=== PATIENT | male | born 1970 | race Caucasian/White ===

== ENCOUNTER 2017-12-01 21:06 | Emergency (ER) | payer MEDICARE, MEDICAID ==
[2017-12-01 22:40] LABS: INFLUENZA A AMPLIFICATION POSITIVE (NEGATIVE); INFLUENZA B AMPLIFICATION NEGATIVE (NEGATIVE)
[2017-12-01] MEDS: OSELTAMIVIR PHOSPHATE 75 MG CAP (TAMIFLU) PO (23:45)
== END 2017-12-02 00:11 | disposition home or self-care (01) ==
LOC: M ED 12-02 00:11
DX: J09.X2 Influenza due to identified novel influenza A virus with other respiratory manifestations (principal); F17.210 Nicotine dependence, cigarettes, uncomplicated
CPT/HCPCS: 87502

== ENCOUNTER 2018-08-27 13:03 | Emergency (ER) | payer MEDICARE ==
[2018-08-27] MEDS: CLINDAMYCIN 900 MG in APPROPRIATE DILUENT 1 EA IV (14:12)
[2018-08-27 14:23] LABS: BASO # 0.1 10^3/uL (0.0-0.2); BASO % 0.4 % (0.0-1.0); EOS # 0.2 10^3/uL (0.0-0.50); EOS % 1.4 % (0.0-3.0); HEMOGLOBIN 15.3 g/dl (13.5-17.5); IMMATURE GRANULOCYTE % 0.5 % (0-3.0); LYMPH # 2.9 10^3/uL (1.5-4.5); LYMPH % 17.7 % (24.0-44.0); MEAN CORPUSCULAR HEMOGLOBIN 31.4 pg (27.0-33.0); MEAN CORPUSCULAR VOLUME 92.4 fl (80.0-96.0); MONO # 1.8 10^3/uL (0.0-0.8); MONO % 10.7 % (0.0-5.0); NEUTROPHILS # 11.3 10^3/uL (1.8-7.7); NEUTROPHILS % 69.3 % (36.0-66.0); PLATELET COUNT, AUTOMATED 254 10^3/uL (150-450); RED BLOOD COUNT 4.87 10^6/uL (4.30-6.10); RED CELL DISTRIBUTION WIDTH 12.7 % (11.5-14.5); WHITE BLOOD COUNT 16.3 10^3/uL (4.0-10.0)
[2018-08-27 14:50] LABS: GOLD SPEC TUBE RECIEVED
[2018-08-27 14:56] LABS: BLOOD UREA NITROGEN 11 MG/DL (7-18); CALCIUM LEVEL 9.4 MG/DL (8.5-10.1); CARBON DIOXIDE LEVEL 31 MEQ/L (21-32); CHLORIDE LEVEL 108 MEQ/L (98-107); CREATININE FOR GFR 0.93 MG/DL (0.70-1.30); GLOMERULAR FILTRATION RATE > 60.0 (>60); GLUCOSE, FASTING 102 MG/DL (70-100); SODIUM LEVEL 141 MEQ/L (136-145)
[2018-08-27 14:57] LABS: ANION GAP 2 MEQ/L (8-16); C REACTIVE PROTEIN QUANTITATIV 1.34 MG/DL (0.00-0.30)
[2018-08-27 14:59] LABS: ERYTHROCYTE SEDIMENTATION RATE 7 mm/hr (0-15)
[2018-08-27] MEDS ORDERED: ISOVUE-370 76% 100ML VIAL (Q9967) As Ordered (15:06)
== END 2018-08-27 16:10 | disposition home or self-care (01) ==
LOC: M ED 13:03
DX: K04.7 Periapical abscess without sinus (principal); L03.211 Cellulitis of face; K21.9 Gastro-esophageal reflux disease without esophagitis; F33.9 Major depressive disorder, recurrent, unspecified; F41.9 Anxiety disorder, unspecified; F20.9 Schizophrenia, unspecified; F17.200 Nicotine dependence, unspecified, uncomplicated
CPT/HCPCS: Q9967

== ENCOUNTER 2020-08-27 13:20 | Inpatient (IN) | payer MEDICARE ==
[~2020-08-27] VITALS: Ht 175.3 cm; Wt 103.1 kg
[~2020-08-27 13:20] MED LIST: ABIL10TA PO; ATIV0.5T3 PO; CHLO25CA PO; CLEO300C2 PO; Effexor XR PO; IBUPOTC PO; LORA1TAB PO; NO HISTORICAL MEDS; OSEL75CA PO; PRAZ1CAP PO; PROZ10CA7 PO; PROZ20CA11 PO; Prozac PO; RISP4TAB33 PO; SERO1TAB PO; VENL37TA PO; ZYPR5TAB2 PO
[2020-08-27 13:56] LABS: BASO # 0.1 10^3/uL (0.0-0.2); BASO % 0.9 % (0.0-1.0); EOS # 0.3 10^3/uL (0.0-0.5); EOS % 2.4 % (0.0-3.0); HEMATOCRIT 44.7 % (42.0-52.0); HEMOGLOBIN 14.7 g/dl (13.5-17.5); LYMPH # 3.6 10^3/uL (1.5-5.0); LYMPH % 32.8 % (24.0-44.0); MEAN CORPUSCULAR HEMOGLOBIN 31.1 pg (27.0-33.0); MEAN CORPUSCULAR HGB CONC 32.9 g/dl (32.0-36.5); MEAN CORPUSCULAR VOLUME 94.5 fl (80.0-96.0); MONO # 0.8 10^3/uL (0.0-0.8); MONO % 7.6 % (0.0-5.0); NEUTROPHILS # 6.1 10^3/uL (1.5-8.5); NEUTROPHILS % 55.4 % (36.0-66.0); PLATELET COUNT, AUTOMATED 238 10^3/uL (150-450); RED BLOOD COUNT 4.73 10^6/uL (4.30-6.10)
[2020-08-27 14:35] LABS: AMPHETAMINES LEVEL URINE NEGATIVE (NEGATIVE); BARBITURATES URINE NEGATIVE (NEGATIVE); BENZODIAZEPINES URINE NEGATIVE (NEGATIVE); CANNABINOIDS URINE NEGATIVE (NEGATIVE); COCAINE METABOLITE URINE NEGATIVE (NEGATIVE); METHADONE URINE NEGATIVE (NEGATIVE); OPIATES URINE NEGATIVE (NEGATIVE); PHENCYCLIDINE URINE NEGATIVE (NEGATIVE)
[2020-08-27 14:42] LABS: ALBUMIN 4.1 GM/DL (3.2-5.2); ALT/SGPT 26 U/L (12-78); BILIRUBIN,DIRECT 0.1 MG/DL (0.0-0.2); BILIRUBIN,TOTAL 0.5 MG/DL (0.2-1.0); BLOOD UREA NITROGEN 11 MG/DL (7-18); CALCIUM LEVEL 9.4 MG/DL (8.5-10.1); CARBON DIOXIDE LEVEL 28 MEQ/L (21-32); CHLORIDE LEVEL 110 MEQ/L (98-107); CPK CREATINE PHOSPHOKINASE 118 U/L (39-308); CREATININE FOR GFR 0.79 MG/DL (0.70-1.30); GLOMERULAR FILTRATION RATE > 60.0 (>60); GLUCOSE, FASTING 120 MG/DL (70-100); MB/CK RELATIVE INDEX 1.69 (< OR =4); POTASSIUM SERUM 3.9 MEQ/L (3.5-5.1); SODIUM LEVEL 142 MEQ/L (136-145); TOTAL PROTEIN 7.3 GM/DL (6.4-8.2); TROPONIN I < 0.02 NG/ML (< 0.10)
[2020-08-27 14:54] LABS: ACETAMINOPHEN LEVEL < 2.0 UG/ML (10.0-30.0); ETHYL ALCOHOL (ETHANOL) < 0.003 % (0.000-0.010); SALICYLATE LEVEL 4.4 MG/DL (5.0-30.0)
--- NOTE | 2020-08-27 15:02 | REP ---
INDICATION: altered mental status COMPARISON: None. 09/16/2013 TECHNIQUE: Axial noncontrast images from the skull base to the vertex with coronal reformations. This CT examination was performed using the following dose reduction techniques: Automated exposure control, adjustment of mA and/or kv according to the patient's size, and use of iterative reconstruction technique. FINDINGS: The ventricles, sulci, and cisterns are normal in position and appearance. Marquis-white differentiation is maintained. No acute intracranial hemorrhage, mass/mass effect, pathology or trauma/injury. No evidence for acute infarction. No extra-axial fluid collection. Calvarium is intact. Paranasal sinuses and mastoid air cells are clear. IMPRESSION: Normal noncontrast head CT. No evidence for acute intracranial pathology or trauma/injury. <Electronically signed by Cameron Valencia > 08/27/20 [id number]
[2020-08-27] MEDS ORDERED: OLANZapine ORAL DISINTEGRATING TAB 5MG PO ONE (15:45)
[2020-08-27] MEDS ORDERED: MAALOX 30 ML SUSP *UDC PO PRN (20:00)
[2020-08-27] MEDS ORDERED: MOM 30ML SUSPENSION UDC PO PRN (20:00)
[2020-08-27] MEDS ORDERED: ACETAMINOPHEN TAB 650MG DOSE (2X325MG) PO PRN (20:00)
--- NOTE | 2020-08-27 20:35 | ECGEPIP ---
[facility] - ED Test Date: 2020-08-27 Pat Name: RACHAEL BARRERA Department: Room: - Gender: Male Recovery Manager: MARIEL : 1970 Requested By: EM Brown Order Number: [id number] Reading MD: Sangita Osman Measurements Intervals [place] Rate: 81 P: 56 NC: 134 QRS: 57 QRSD: 85 T: 35 QT: 360 QTc: 420 Interpretive Statements SINUS RHYTHM NONSPECIFIC T-WAVE ABNORMALITY NO PRIOR Electronically Signed on 08-27-2020 20:35:42 EDT by Sangita Osman
[2020-08-27 23:12] VITALS: BP 127/83
[2020-08-28] MEDS ORDERED: INFLUENZA QUADRIVALENT PF VACCINE 0.5ML SYRINGE IM ONE (09:00)
[2020-08-28] MEDS: NICOTINE 21MG/24HR 1 EA TRANSDERMAL TD SCH (09:22)
[2020-08-28 17:32] VITALS: BP 145/92
[2020-08-28] MEDS: ARIPiprazole 2 MG TAB PO SCH (21:00)
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
[2020-08-29] MEDS: NICOTINE 21MG/24HR 1 EA TRANSDERMAL TD SCH (08:57)
[2020-08-29] MEDS: OLANZapine ORAL DISINTEGRATING TAB 5MG PO PRN (11:33)
[2020-08-29 18:24] VITALS: BP 142/85
[2020-08-29] MEDS: traZODone 50 MG TAB PO PRN (20:57)
[2020-08-29] MEDS: ARIPiprazole 2 MG TAB PO SCH (20:57)
[2020-08-30 06:51] VITALS: BP 112/72
[2020-08-30] MEDS: NICOTINE 21MG/24HR 1 EA TRANSDERMAL TD SCH (09:00)
--- NOTE | 2020-08-30 09:45 | MHIPNPDOC ---
[facility] Progress Note Progress Note DATE OF SERVICE: 08/30/20 Subjective HPI: Venkata presents today for a follow-up visit. He reports that he is feeling okay but is slightly upset that he cannot go home. He has been social but unusual and psychotic. MEDICATIONS: Patient claims the Abilify makes him too tired at night and wants to try a di fferent medication. Objective Appearance: Well nourished. Appears to be stated age. Well groomed. Thought Content: No thoughts of self harm. No evidence of delusions. No evidence of suicidal ideation. No evidence of aggressive or homicidal ideation. Judgement: Poor judgement. Insight: Poor insight. Assessment F29 Unspecified psychosis not due to a substance or known physiological condition Plan Switch to 5 mg Haldol nightly, hopefully with less sedation. Vital Signs Vital Signs Date Time Temp Pulse Resp B/P (MAP) Pulse Ox O2 Delivery O2 Flow Rate FiO2 08/30/20 06:51 97.8 75 16 112/72 (85) 08/29/20 18:24 98 Room Air 08/27/20 14:35 2.0 Current Medications Current Medications Medications (Trade) Dose Ordered Sig/Mitch Route PRN Reason Start Time Stop Time Status Last Admin Dose Admin Acetaminophen (Tylenol Tab) 650 mg Q6HP PRN PO HEADACHE or DISCOMFORT 08/27/20 20:00 Al Hydrox/Mg Hydrox/Simethicone (Mylanta) 30 ml Q4HP PRN PO HEARTBURN/INDIGESTION 08/27/20 20:00 Aripiprazole (AbiLIFY) 2 mg QHS PO 08/28/20 21:00 08/29/20 20:57 Home Med (Med Rec Complete!) ASDIRECTED XX 08/27/20 20:15 08/27/20 20:05 DC Magnesium Hydroxide (Milk Of Magnesia) 30 ml DAILYPRN PRN PO CONSTIPATION 08/27/20 20:00 Nicotine (Nicoderm Cq 21mg) 1 patch DAILY TD 08/28/20 09:00 08/29/20 08:57 Olanzapine (ZyPREXA ZYDIS) 5 mg Q4HP PRN PO AGITATION or ANXIETY 08/27/20 20:00 08/29/20 11:33 Trazodone HCl (Desyrel) 50 mg QHSP PRN PO INSOMNIA 08/27/20 20:00 08/29/20 20:57 Allergies Coded Allergies: No Known Allergies (Verified , 08/27/18) JAIRO LUA DO Aug 30, 2020 09:45
--- NOTE | 2020-08-30 12:14 | MHIPN ---
DATE: 08/29/2020 VITAL SIGNS: Blood pressure 145/92, pulse 74, temperature 98. CHIEF COMPLAINT: Feels stressed. SUBJECTIVE: Seen for followup. Indicates he slept a bit, a few hours, last night. Had been anxious, upset, yesterday in the evening, had wanted to go home, still wants to go home. Appetite is okay. MENTAL STATUS EXAMINATION: He is sitting up in bed, he is cooperative, possibly a bit guarded, currently no agitation, no psychomotor retardation, more subdued than yesterday, the uncontrollable laughter is not evident this morning. Affect is restricted in range. He denies thoughts of harming himself or anyone else. At present does not appear internally preoccupied. He has poor judgment, limited insight. ASSESSMENT: Unspecified psychotic disorder. Rule out bipolar disorder. PLAN: Continue current care, observations, would suggest obtaining collateral information. He has declined the Abilify which he has been prescribed, I would suggest that he consider taking it, would look at persuading him to do so. Does require some stability prior to discharge. He also says does not have a primary care partner, and should be referred to one upon discharge. He will be seeing the clinician assigned to him tomorrow. CHRISTIANO
[2020-08-30 16:53] VITALS: BP 130/66
[2020-08-30] MEDS: traZODone 50 MG TAB PO PRN (20:22)
[2020-08-31 07:03] VITALS: BP 124/86
[2020-08-31] MEDS: NICOTINE 21MG/24HR 1 EA TRANSDERMAL TD SCH (09:00)
--- NOTE | 2020-08-31 13:28 | MHIPNPDOC ---
[facility] Progress Note Progress Note DATE OF SERVICE: 08/31/20 Subjective HPI: Venkata presents today for update on medication and how he is doing. He is still somewhat odd and goes off in circumstantial discussions that don't make much sense in the context of the discussion. Nursing staff report that he is still somewhat bizarre but has been amenable to treatment. MEDICATIONS: He reports that the Haldol is helpful and makes him feel less sleepy during the day. Objective Mood: Generally linear circumstantial at times associations better intact. Speech: Spontaneous and Fluid. Normal rate. Normal volume. Cognition: Grossly intact in a suicidal homicidal ideation affect flat. Little reactivity. Judgement: Poor. Insight: Poor. Assessment F28 Other psychotic disorder not due to a substance or known physiological condition Plan Increase Haldol to 5 mg nightly. Continue to pursue affect courage groups. Monitor for improvement. Vital Signs Vital Signs Date Time Temp Pulse Resp B/P (MAP) Pulse Ox O2 Delivery O2 Flow Rate FiO2 08/31/20 07:03 97.3 57 18 124/86 (99) 08/29/20 18:24 98 Room Air 08/27/20 14:35 2.0 Current Medications Current Medications Medications (Trade) Dose Ordered Sig/Mitch Route PRN Reason Start Time Stop Time Status Last Admin Dose Admin Acetaminophen (Tylenol Tab) 650 mg Q6HP PRN PO HEADACHE or DISCOMFORT 08/27/20 20:00 Al Hydrox/Mg Hydrox/Simethicone (Mylanta) 30 ml Q4HP PRN PO HEARTBURN/INDIGESTION 08/27/20 20:00 Aripiprazole (AbiLIFY) 2 mg QHS PO 08/28/20 21:00 08/30/20 12:49 DC 08/29/20 20:57 Haloperidol (Haldol) 2 mg QHS PO 08/30/20 21:00 08/30/20 20:22 Home Med (Med Rec Complete!) ASDIRECTED XX 08/27/20 20:15 08/27/20 20:05 DC Magnesium Hydroxide (Milk Of Magnesia) 30 ml DAILYPRN PRN PO CONSTIPATION 08/27/20 20:00 Nicotine (Nicoderm Cq 21mg) 1 patch DAILY TD 08/28/20 09:00 08/29/20 08:57 Olanzapine (ZyPREXA ZYDIS) 5 mg Q4HP PRN PO AGITATION or ANXIETY 08/27/20 20:00 08/29/20 11:33 Trazodone HCl (Desyrel) 50 mg QHSP PRN PO INSOMNIA 08/27/20 20:00 08/30/20 20:22 Allergies Coded Allergies: No Known Allergies (Verified , 08/27/18) JAIRO LUA DO Aug 31, 2020 13:28
--- NOTE | 2020-08-31 13:39 | MHHPE ---
DATE: 08/28/2020 VITAL SIGNS: Blood pressure 145/92, pulse 74, temperature 98. CHIEF COMPLAINT: Has been laughing erratically. SUBJECTIVE: He is 50 years old, has a history of psychiatric difficulties, was admitted here in the past, last was about 7 years ago, various diagnoses, was diagnosed with major depressive disorder with psychotic features in the past, has been on various medications, currently not in treatment, he is unable to provide a coherent history, other than indicating that his landlord, who is also a friend, Ignacio, dropped him here. He is not quite sure why. Though when he relates this, the patient laughs quite a bit, somewhat incongruently, and unable to indicate what amuses him. Says lives with a lady called Abiola, they have been together for a few years, says they are roommates. Says at times does not sleep well, has been eating, says has used Abilify in the past, but again vague on this. Denies any suicidal thoughts or intents. According to the emergency room (ER) note, the patient was brought in as his friend was concerned about his state. He himself does not realize why he was brought here. She spoke about a skeleton palomo, but unclear as to how it is related to him. He apparently walked to a friends house recently, about 4 days ago, from [place] to [place], as he was anxious. Per the ER report, continued to laugh, and talked to himself, at times, when he was alone in the room. PAST PSYCHIATRIC HISTORY: Was diagnosed with depression and psychosis in 2012 and had attempted killing himself by hanging in 2011. At some point in 2012, was seen by Dr. Cortes, outpatient, was diagnosed with posttraumatic stress disorder as well. When was here in 2011, thought to have a mood disorder with depressive features. When admitted here in 2012, diagnosed with catatonia, was thought to be depressed at that time. SUBSTANCE ABUSE HISTORY: Unclear at present. ALLERGIES: No known allergies. MENTAL STATUS EXAMINATION: Neat, cooperative, no agitation, no psychomotor retardation. Answers questions briefly, but tends to laugh when doing so, and pointing towards the street, when referring to his friend Ignacio, and displays tangentiality of thought, with a labile affect. Denies any suicidal thoughts or intents, no homicidal ideas or intents, at times appears somewhat internally preoccupied. He is alert and oriented, no fluctuation of consciousness. Intellect average at best. Judgment and insight are poor. ASSESSMENT: Unspecified psychotic disorder. Rule out bipolar disorder, current episode manic with psychotic features. Rule out schizoaffective disorder, manic type, current episode manic with psychotic features. PLAN: He is admitted to the inpatient psychiatry unit and placed on relevant precautions. We will look at obtaining collateral information. He will receive a medicine consult if indicated. We will encourage him to participate in activities in the unit. We will start him on Abilify 2 mg at night, to be titrated upwards, to help with his moods. Further recommendations will be made depending on the clinical picture. I would anticipate a 5-7 day stay. [facility]
[2020-08-31 16:16] VITALS: BP 144/83
[2020-08-31] MEDS ORDERED: haloperidoL 5 MG TAB PO SCH (21:00)
[2020-08-31] MEDS: traZODone 50 MG TAB PO PRN (21:08)
[2020-09-01 06:38] VITALS: BP 102/66
[2020-09-01] MEDS: NICOTINE 21MG/24HR 1 EA TRANSDERMAL TD SCH (09:00)
--- NOTE | 2020-09-01 10:20 | MHIPNPDOC ---
[facility] Progress Note Progress Note DATE OF SERVICE: 09/01/20 Subjective HPI: Venkata presents today for a follow-up visit. Patient was somewhat bizarre today and mentioned something about keys and the outside, that he was going up to the front door to look through. He was acting unusual, but it appears to be consistent throughout the day. Each day, he reports he wants to go home and claims Haldol is helpful since it does not make him sleepy. Solis confusion and psychosis appear to remain. Objective Behavior: Superficially cooperative. Mood: Somewhat guarded. Thought Content: Suicidal and homicidal ideation. Judgement: Poor. Insight: Poor. Assessment F99 Mental disorder, not otherwise specified Plan Increase Haldol to 5 mg bid to help improve psychotic symptoms. Continue to monitor diagnosis. Vital Signs Vital Signs Date Time Temp Pulse Resp B/P (MAP) Pulse Ox O2 Delivery O2 Flow Rate FiO2 09/01/20 06:38 96.3 63 18 102/66 (78) 08/29/20 18:24 98 Room Air 08/27/20 14:35 2.0 Current Medications Current Medications Medications (Trade) Dose Ordered Sig/Mitch Route PRN Reason Start Time Stop Time Status Last Admin Dose Admin Acetaminophen (Tylenol Tab) 650 mg Q6HP PRN PO HEADACHE or DISCOMFORT 08/27/20 20:00 Al Hydrox/Mg Hydrox/Simethicone (Mylanta) 30 ml Q4HP PRN PO HEARTBURN/INDIGESTION 08/27/20 20:00 Aripiprazole (AbiLIFY) 2 mg QHS PO 08/28/20 21:00 08/30/20 12:49 DC 08/29/20 20:57 Haloperidol (Haldol) 2 mg QHS PO 08/30/20 21:00 08/31/20 14:45 DC 08/30/20 20:22 Haloperidol (Haldol) 5 mg QHS PO 08/31/20 21:00 08/31/20 21:08 Home Med (Med Rec Complete!) ASDIRECTED XX 08/27/20 20:15 08/27/20 20:05 DC Magnesium Hydroxide (Milk Of Magnesia) 30 ml DAILYPRN PRN PO CONSTIPATION 08/27/20 20:00 Nicotine (Nicoderm Cq 21mg) 1 patch DAILY TD 08/28/20 09:00 08/29/20 08:57 Olanzapine (ZyPREXA ZYDIS) 5 mg Q4HP PRN PO AGITATION or ANXIETY 08/27/20 20:00 08/29/20 11:33 Trazodone HCl (Desyrel) 50 mg QHSP PRN PO INSOMNIA 08/27/20 20:00 08/31/20 21:08 Allergies Coded Allergies: No Known Allergies (Verified , 08/27/18) JAIRO LUA DO Sep 01, 2020 10:20
[2020-09-01] MEDS: haloperidoL 5 MG TAB PO SCH ×2 (13:20→20:08)
[2020-09-01 16:27] VITALS: BP 138/83
[2020-09-01] MEDS: traZODone 50 MG TAB PO PRN (20:07)
[2020-09-02 06:36] VITALS: BP 150/87
[2020-09-02] MEDS: NICOTINE 21MG/24HR 1 EA TRANSDERMAL TD SCH (09:00)
[2020-09-02] MEDS: haloperidoL 5 MG TAB PO SCH ×2 (09:45→20:23)
--- NOTE | 2020-09-02 11:13 | MHIPNPDOC ---
[facility] Progress Note Progress Note DATE OF SERVICE: 09/02/20 Subjective HPI: The patient has met with today he reports that he wants to go home. He's quite guarded and after a few minutes he begins to laugh inappropriately describing any things people are out to get him and his girlfriend and that are outside his house, but he laughs paradoxically with an unusual smile. Notably, nursing staff has noticed that he has some predilection for laughing at inappropriate times still being quite concerned and Paranoid. Objective Affect: Inappropriate. Labile. Speech: Tangential. Thought Form: Linear and goal directed. Thought Content: Paranoid thoughts. Judgement: Poor. Insight: Poor. Assessment F29 Unspecified psychosis not due to a substance or known physiological condition Plan Continue Haldol 5 milligrams BID with hopeful Improvement. Vital Signs Vital Signs Date Time Temp Pulse Resp B/P (MAP) Pulse Ox O2 Delivery O2 Flow Rate FiO2 09/02/20 06:36 97.1 91 16 150/87 (108) 94 Room Air 08/27/20 14:35 2.0 Current Medications Current Medications Medications (Trade) Dose Ordered Sig/Mitch Route PRN Reason Start Time Stop Time Status Last Admin Dose Admin Acetaminophen (Tylenol Tab) 650 mg Q6HP PRN PO HEADACHE or DISCOMFORT 08/27/20 20:00 Al Hydrox/Mg Hydrox/Simethicone (Mylanta) 30 ml Q4HP PRN PO HEARTBURN/INDIGESTION 08/27/20 20:00 Aripiprazole (AbiLIFY) 2 mg QHS PO 08/28/20 21:00 08/30/20 12:49 DC 08/29/20 20:57 Haloperidol (Haldol) 2 mg QHS PO 08/30/20 21:00 08/31/20 14:45 DC 08/30/20 20:22 Haloperidol (Haldol) 5 mg BID PO 09/01/20 09:00 09/02/20 09:45 Haloperidol (Haldol) 5 mg QHS PO 08/31/20 21:00 09/01/20 13:06 DC 08/31/20 21:08 Home Med (Med Rec Complete!) ASDIRECTED XX 08/27/20 20:15 08/27/20 20:05 DC Magnesium Hydroxide (Milk Of Magnesia) 30 ml DAILYPRN PRN PO CONSTIPATION 08/27/20 20:00 Nicotine (Nicoderm Cq 21mg) 1 patch DAILY TD 08/28/20 09:00 08/29/20 08:57 Olanzapine (ZyPREXA ZYDIS) 5 mg Q4HP PRN PO AGITATION or ANXIETY 08/27/20 20:00 08/29/20 11:33 Trazodone HCl (Desyrel) 50 mg QHSP PRN PO INSOMNIA 08/27/20 20:00 09/01/20 20:07 Allergies Coded Allergies: No Known Allergies (Verified , 08/27/18) JAIRO LUA DO Sep 02, 2020 11:13
[2020-09-02 16:46] VITALS: BP 135/77
[2020-09-02] MEDS: traZODone 50 MG TAB PO PRN (20:23)
[2020-09-03 06:57] VITALS: BP 115/81
[2020-09-03] MEDS: NICOTINE 21MG/24HR 1 EA TRANSDERMAL TD SCH (09:00)
[2020-09-03] MEDS: haloperidoL 5 MG TAB PO SCH (09:30)
--- NOTE | 2020-09-03 11:03 | MHIPNPDOC ---
[facility] Progress Note Progress Note DATE OF SERVICE: 09/03/20 Subjective HPI/Interval Hx: The patient is met with today, he reports he is doing somewhat better, he still has some inappropriate laughter but is noticeably more stable. He reports he feels less anxious and more focused. He reports that he is not as paranoid about people coming after him. Objective General: [Well dressed with good hygiene] Speech: [Spontaneous and fluid] Thought processes: [Linear and logical] Thought content: [Future orientated] Abstract reasoning, and computation: [Intact] Description of associations: improved Description of abnormal or psychotic thoughts:[Denies any suicidal or homicidal ideation. Denies any auditory or visual hallucinations. Does not appear to be responding to internal stimuli. Does not appear to be endorsing any bizarre or paranoid ideation.] Judgment: improved Insight: improved Orientation: [Alert and orientated 3] Recent and remote memory: [Intact] Attention span and concentration: [Intact] Fund of knowledge: [Adequate] Mood: ["okay"] Affect: more appropriate Assessment unspecified psychotic disorder Plan . Will continue Haldol 5 mg BID, observed over weekend to see whether discharge is appropriate Vital Signs Vital Signs Date Time Temp Pulse Resp B/P (MAP) Pulse Ox O2 Delivery O2 Flow Rate FiO2 09/03/20 06:57 98.4 65 14 115/81 (92) 97 Room Air Current Medications Current Medications Medications (Trade) Dose Ordered Sig/Mitch Route PRN Reason Start Time Stop Time Status Last Admin Dose Admin Acetaminophen (Tylenol Tab) 650 mg Q6HP PRN PO HEADACHE or DISCOMFORT 08/27/20 20:00 Al Hydrox/Mg Hydrox/Simethicone (Mylanta) 30 ml Q4HP PRN PO HEARTBURN/INDIGESTION 08/27/20 20:00 Aripiprazole (AbiLIFY) 2 mg QHS PO 08/28/20 21:00 08/30/20 12:49 DC 08/29/20 20:57 Haloperidol (Haldol) 2 mg QHS PO 08/30/20 21:00 08/31/20 14:45 DC 08/30/20 20:22 Haloperidol (Haldol) 5 mg BID PO 09/01/20 09:00 09/03/20 09:30 Haloperidol (Haldol) 5 mg QHS PO 08/31/20 21:00 09/01/20 13:06 DC 08/31/20 21:08 Home Med (Med Rec Complete!) ASDIRECTED XX 08/27/20 20:15 08/27/20 20:05 DC Magnesium Hydroxide (Milk Of Magnesia) 30 ml DAILYPRN PRN PO CONSTIPATION 08/27/20 20:00 Nicotine (Nicoderm Cq 21mg) 1 patch DAILY TD 08/28/20 09:00 08/29/20 08:57 Olanzapine (ZyPREXA ZYDIS) 5 mg Q4HP PRN PO AGITATION or ANXIETY 08/27/20 20:00 08/29/20 11:33 Trazodone HCl (Desyrel) 50 mg QHSP PRN PO INSOMNIA 08/27/20 20:00 09/02/20 20:23 Allergies Coded Allergies: No Known Allergies (Verified , 08/27/18) JAIRO LUA DO Sep 03, 2020 11:03
[2020-09-03 16:02] VITALS: BP 136/90
[2020-09-03] MEDS: traZODone 50 MG TAB PO PRN (20:45)
[2020-09-04 06:48] VITALS: BP 141/87
[2020-09-04] MEDS: NICOTINE 21MG/24HR 1 EA TRANSDERMAL TD SCH (08:49)
[2020-09-04 16:23] VITALS: BP 142/73
[2020-09-04] MEDS: traZODone 50 MG TAB PO PRN (21:04)
[2020-09-05 06:46] VITALS: BP 122/82
[2020-09-05] MEDS: NICOTINE 21MG/24HR 1 EA TRANSDERMAL TD SCH (09:00)
[2020-09-05 16:29] VITALS: BP 135/88
[2020-09-05] MEDS: OLANZapine ORAL DISINTEGRATING TAB 5MG PO PRN (21:48)
[2020-09-05] MEDS: traZODone 50 MG TAB PO PRN (21:48)
[2020-09-06 06:44] VITALS: BP 116/78
[2020-09-06] MEDS: NICOTINE 21MG/24HR 1 EA TRANSDERMAL TD SCH (08:50)
--- NOTE | 2020-09-06 10:10 | MHDSPDOC ---
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 This was done so after he had unusual thoughts, psychosis, inappropriate laughter, and disorganization. His associations became intact and his paranoia had evaporated after the start of the medication. MEDICATIONS: He was tried on Abilify and was switched onto Haldol with increase to 10 BID with positive effects as he stabilized and his thoughts became linear DISCHARGE ASSESSMENT:[improved] Legal status considerations: The patient at the time of discharge did not meet criteria for involuntary admission/extension due to having a [normal] mental status exam, [fair] insight into the situation, They are engaged in the discharge process, as well as being friendly and amenable in behavioral control and havent been engaging in any observed concerning behavior or ideation recently. They decline voluntary extension/admission at this time and must be discharged in good ur[place]ano, as Im unable to make a case for holding the patient against their will. They may have historical risk factors of admissions and other interactions with psychiatry however, those are not modifiable from a clinical perspective. The patient will need to be discharged in good urbano. MENTAL STATUS EXAMINATION ON DISCHARGE: [General: Well dressed with good hygiene Speech: Spontaneous and fluid Thought processes: Linear and logical Thought content: Future orientated Abstract reasoning, and computation: Intact Description of associations: Intact Description of abnormal or psychotic thoughts:Denies any suicidal or homicidal ideation. Denies any auditory or visual hallucinations. Does not appear to be responding to internal stimuli. Does not appear to be endorsing any bizarre or paranoid ideation. Judgment: fair Insight: fair Orientation: Alert and orientated 3 Recent and remote memory: Intact Attention span and concentration: Intact Fund of knowledge: Adequate Mood: "okay" Affect: Euthymic with a full range] PLAN/FOLLOWUP ARRANGEMENTS: Follow up appointments made (PCP and MH in 5 days of D/C date) and safety plan completed. Safety Planning aspects completed prior to discharge [Medication supplies limited to 7 days with 4 refills to prevent accumulation to OD] [Family contact completed, educated on safe practices, instructed on removal and mitigation of dangerous means] [RN reviewed crisis hotline information and other aspects to empower patient to access care in interim before next appointment.] The amount of time spent in the coordination of care for this patient was approximately 30 minutes. Vital Signs/I&Os Vital Signs Date Time Temp Pulse Resp B/P (MAP) Pulse Ox O2 Delivery O2 Flow Rate FiO2 09/06/20 06:44 97.4 69 12 116/78 (91) Room Air 09/05/20 06:46 97 Medications Scheduled Haloperidol (Haloperidol) 10 Mg Tablet, 10 MG PO BID for thoughts for 7 Days, #14 Nicotine (Nicotine Patch) 21 Mg Patch.td24, 1 PATCH TD DAILY for tobacco for 30 Days, #30 Allergies Coded Allergies: No Known Allergies (Verified , 08/27/18) JAIRO LUA DO Sep 06, 2020 10:10
[2020-09-06] MEDS ORDERED: NICO21PAT TD (10:30)
[2020-09-06] MEDS ORDERED: HALO10TA20 PO (10:30)
== END 2020-09-06 14:50 | disposition home or self-care (01) | DRG 885 ==
LOC: M ED 13:20 → M ED INP 19:49 → M PSY 23:04
PROVIDERS: ADMIT Psychiatry & Neurology Psychiatry; ATTEND Psychiatry & Neurology Addiction Medicine
DX: F29 Unspecified psychosis not due to a substance or known physiological condition (principal); F17.200 Nicotine dependence, unspecified, uncomplicated

== ENCOUNTER 2020-09-15 20:55 | Emergency (ER) | payer MEDICARE ==
[~2020-09-15] VITALS: Ht 175.3 cm; Wt 100.0 kg
[~2020-09-15 20:55] MED LIST changes: +HALO10TA20 PO; +NICO21PAT TD
[2020-09-15] MEDS ORDERED: LIDOCAINE 5% (LIDODERM) PATCH TD ONE (22:15)
[2020-09-15] MEDS ORDERED: KETOROLAC 60MG 2ML VIAL IM ONE (22:15)
[2020-09-15] MEDS ORDERED: CYCLOBENZAPRINE 10MG TABLET PO ONE (22:15)
[2020-09-15] MEDS ORDERED: LIDO5DIS41 TOP (22:53)
[2020-09-15] MEDS ORDERED: CYCL-707 PO (22:53)
[2020-09-15 23:00] VITALS: BP 145/74
[2020-09-16] MEDS ORDERED: **NOTE PATIENT COMMENT** MISC XX SCH (21:00)
== END 2020-09-15 23:01 | disposition home or self-care (01) ==
LOC: M ED 20:55
DX: M54.5 Low back pain (principal); K21.9 Gastro-esophageal reflux disease without esophagitis; F17.200 Nicotine dependence, unspecified, uncomplicated
CPT/HCPCS: 96372; 99283; J1885

== ENCOUNTER 2021-02-17 05:58 | Emergency (ER) | payer OTHER ==
[~2021-02-17] VITALS: Ht 177.8 cm; Wt 104.5 kg
[~2021-02-17 05:58] MED LIST changes: +CYCL-707 PO; +LIDO5DIS41 TOP
[2021-02-17] MEDS ORDERED: NITROGLYCERIN 0.4 MG SUBL TABLET As Ordered ONE (06:18)
[2021-02-17] MEDS: NITROGLYCERIN 0.4 MG SUBL TABLET SL PRN ×2 (06:20→07:03)
[2021-02-17 06:28] LABS: HEMATOCRIT 50.4 % (42.0-52.0); HEMOGLOBIN 16.4 g/dl (13.5-17.5); MEAN CORPUSCULAR HEMOGLOBIN 30.9 pg (27.0-33.0); MEAN CORPUSCULAR HGB CONC 32.5 g/dl (32.0-36.5); MEAN CORPUSCULAR VOLUME 94.9 fl (80.0-96.0); PLATELET COUNT, AUTOMATED 247 10^3/uL (150-450); RED BLOOD COUNT 5.31 10^6/uL (4.30-6.10)
[2021-02-17 06:38] LABS: INR 0.9; PARTIAL THROMBOPLASTIN TIME 23.6 SECONDS (24.2-38.5); PROTHROMBIN TIME 12.3 SECONDS (12.5-14.3)
[2021-02-17] MEDS ORDERED: ISOVUE-370 76% 100ML VIAL As Ordered ONE (06:50)
[2021-02-17 06:55] LABS: ATYPICAL LYMPH 3 % (0-5); BASOPHILS 1 % (0-1); EOSINOPHILS 2 % (0-3); LYMPHOCYTES 29 % (16-44); MONOCYTES 10 % (0-5); NEUTROPHILS 55 % (28-66); PLATELET ESTIMATE NORMAL (NORMAL)
[2021-02-17] MEDS ORDERED: MORPHINE 4 MG/ML 1ML VIAL/SYRINGE (J2270) IV ONE ×3 (06:55→09:00)
--- NOTE | 2021-02-17 06:55 | REPVR ---
PROCEDURE INFORMATION: Exam: XR Chest Exam date and time: 02/17/2021 6:21 AM Age: 51 years old Clinical indication: Other: Chest pain TECHNIQUE: Imaging protocol: XR of the chest. Views: 1 view. COMPARISON: No relevant prior studies available. FINDINGS: Lungs: Mild accentuation of main central pulmonary vasculature greater on the left. Interstitial thickening on a chronic basis suggested in the lower lungs with more focal pleuroparenchymal thickening laterally in the lower left chest. Pleural spaces: Blunting left costophrenic angle. Heart/Mediastinum: Unremarkable. No cardiomegaly. Bones/joints: Unremarkable. IMPRESSION: 1. Slight nodular interstitial thickening bilaterally is most pronounced in the lower lungs. 2. More focal pleuroparenchymal scarring/thickening left lower chest laterally. 3. Accentuated central pulmonary vasculature which could indicate an element of pulmonary arterial hypertension. Electronically signed by: aSmantha Castillo On 02/17/2021 06:55:57 AM
[2021-02-17 07:03] VITALS: BP 163/103
[2021-02-17 07:39] LABS: ALBUMIN 4.2 GM/DL (3.2-5.2); ALT/SGPT 37 U/L (12-78); BILIRUBIN,DIRECT 0.1 MG/DL (0.0-0.2); BILIRUBIN,TOTAL 0.5 MG/DL (0.2-1.0); BLOOD UREA NITROGEN 20 MG/DL (7-18); CALCIUM LEVEL 9.5 MG/DL (8.5-10.1); CARBON DIOXIDE LEVEL 24 MEQ/L (21-32); CHLORIDE LEVEL 107 MEQ/L (98-107); CK-MB VALUE MASS 1.3 NG/ML (<3.6); CPK CREATINE PHOSPHOKINASE 96 U/L (39-308); CREATININE FOR GFR 1.13 MG/DL (0.70-1.30); FREE T4 1.05 NG/DL (0.76-1.46); GLOMERULAR FILTRATION RATE > 60.0 (>60); GLUCOSE, FASTING 157 MG/DL (70-100); LIPASE 145 U/L (73-393); MB/CK RELATIVE INDEX 1.35 (< OR =4); POTASSIUM SERUM 4.2 MEQ/L (3.5-5.1); SODIUM LEVEL 139 MEQ/L (136-145); TOTAL PROTEIN 7.5 GM/DL (6.4-8.2); TROPONIN I < 0.02 NG/ML (< 0.10)
[2021-02-17] MEDS ORDERED: NS 1,000 ML IV ONE (08:00)
--- NOTE | 2021-02-17 08:29 | REP ---
INDICATION: chest pain sob. COMPARISON: Comparison is made with today's portable chest x-ray. No prior chest CT.. TECHNIQUE: Contrast dose: 100 ML of Isovue [address] technique: Helical scanning is acquired and overlapping 1.5 mm and contiguous 3 mm axial images are reformatted. In addition, maximum intensity projection and multiplanar re-formation images are generated in sagittal and coronal imaging projections. FINDINGS: There is good opacification of the pulmonary arterial tree and there is no filling defect or vessel cutoff to suggest pulmonary embolus. Maximum intensity projection images show unremarkable pulmonary arterial tree as well. The thoracic aorta is homogeneously although somewhat less well opacified. The no evidence of aneurysm or dissection. This is subclavian arteries are mildly ectatic bilaterally and symmetrically. No severiano aneurysm. Great vessels are otherwise unremarkable. There is no evidence of pleural or pericardial effusion. No hilar or mediastinal mass or adenopathy is observed.. Lung window settings demonstrate an area of pleuroparenchymal fibrosis in the left lower lobe laterally. There is some linear fibrotic or atelectatic change in the left lower lobe posteriorly as well. There is a broad area of pleural plaquing or pleural post fibrotic pleural thickening in the left lower lung zone posteriorly. No other infiltrate is seen. No pulmonary mass or significant pulmonary nodule is seen. No bony lesion is seen. In the upper abdomen, there is a low-density nodule in the left adrenal gland measuring 13 mm in greatest diameter. This demonstrates a mean Hounsfield unit density of -11 Hounsfield units consistent with benign left adrenal adenoma. There are 2 small subcentimeter cysts in the liver. The visualized upper abdominal structures are otherwise unremarkable. IMPRESSION: No CT evidence of pulmonary embolus. Pleuroparenchymal fibrosis changes in the left lower lobe. Otherwise no acute abnormality. <Electronically signed by Trev Diamond > 02/17/21 [id number]
--- NOTE | 2021-02-17 08:43 | REP ---
INDICATION: chest pain sob. COMPARISON: Comparison abdominal CT study October 28, 2009.. TECHNIQUE: Helical scanning was acquired and 4 mm axial images are re-formatted. Coronal and sagittal MPR images were generated and reviewed. The contrast enhancement dose is 100 mL of intravenous Isovue 370. 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 There is moderate diffuse fatty infiltration of the liver. No focal liver lesion is seen. No splenic abnormality is observed. A small left adrenal adenoma is seen 1.3 cm in diameter. There is a calcified 6 mm gallstone in the lumen of the gallbladder. No gallbladder wall thickening is seen. No pancreatic abnormality is observed. No retroperitoneal mass or adenopathy is seen. There are small simple cysts in each kidney, the largest of these is in the left mid kidney measuring 2.9 cm in greatest diameter. Small and large intestinal bowel loops are unremarkable in the abdomen and pelvis. No abdominal wall defect is seen. A normal appendix is visible the medial aspect of the cecum. The patient gives a history of previous colon resection but I do not see evidence of this. Prostate, seminal vesicles and urinary bladder show no acute abnormality. There are a few dystrophic calcifications in the prostate. Abdominal aorta is normal in caliber and its major branches appear intact. Bone window settings demonstrate osteoarthritic facet disease at L5-S1 and degenerative disc changes at L5-S1, L3-4, L2-3, and L1-2. There is a slight degenerative 6 mm L5-S1 spondylolisthesis. No spondylolysis is seen although there is some asymmetry of the posterior elements of L5 developmentally. IMPRESSION: Is 1.3 cm benign left adrenal adenoma. Small cortical cysts in each kidney. Fatty infiltration of the liver. Normal pancreas and appendix. No acute intra-abnormality. <Electronically signed by Trev Diamond > 02/17/21 [id number]
[2021-02-17] MEDS ORDERED: KETOROLAC 30 MG/ML 1ML VIAL As Ordered ONE (08:59)
[2021-02-17] MEDS ORDERED: KETOROLAC 30 MG/ML 1ML VIAL IV ONE (09:00)
[2021-02-17] MEDS ORDERED: ASPIRIN 81 MG CHEW TABLET PO ONE (09:00)
--- NOTE | 2021-02-17 10:20 | ECGEPIP ---
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
--- NOTE | 2021-02-17 10:20 | ECGEPIP ---
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
--- NOTE | 2021-02-17 10:26 | REP ---
INDICATION: severe persistent ruq pain.midep - ro cholecystitis. COMPARISON: Comparison CT study is from earlier today February 17, 2021.. TECHNIQUE: Right upper quadrant sonography. FINDINGS: Scanning through the right upper quadrant of the abdomen demonstrates a normal sized, thin-walled gallbladder without evidence of mass or polyp. There is a 6 mm shadowing gallstone in the neck of the gallbladder correlating with the CT findings. Common bile duct is normal measuring 0.5 cm in greatest diameter. No focal liver lesion is seen. Liver size is normal. There is diffusely increased hepatic echogenicity consistent with fatty infiltration. The pancreas is obscured by abdominal gas. No right renal abnormality is seen by sonography. There is no evidence of ascites. The right kidney measures 12.0 x 6.3 x 5.4 cm. IMPRESSION: Cholelithiasis. No gallbladder wall thickening or pericholecystic fluid. Gallbladder is not dilated. Normal CBD. Fatty infiltration of the liver. Otherwise negative. <Electronically signed by Trev Diamond > 02/17/21 [id number]
[2021-02-17] MEDS ORDERED: KETO10TAB PO (12:44)
[2021-02-17] MEDS ORDERED: ZOFR4TAB16 PO (12:45)
[2021-02-17] MEDS ORDERED: OXYC1TAB23 PO (12:45)
[2021-02-17 13:06] VITALS: BP 154/72
== END 2021-02-17 13:23 | disposition home or self-care (01) ==
LOC: M ED 05:58
DX: K80.80 Other cholelithiasis without obstruction (principal); R07.9 Chest pain, unspecified; K76.0 Fatty (change of) liver, not elsewhere classified; F17.200 Nicotine dependence, unspecified, uncomplicated; R00.1 Bradycardia, unspecified
CPT/HCPCS: 71045; 71275; 74177; 76705; 80048; 80076; 82550; 82553; 83690; 84439; 84443; 84484; 85025; 85610; 85730; 87040; 93005; 93041; 94760; 96361; 96374; 96375; 96376; 99285; J1885; J2270; Q9967

== ENCOUNTER → 2022-08-22 | Outpatient (CLI) | payer OTHER ==
[~2022-08-22] MED LIST changes: +BACTDSTA PO; +IBUP200T46 PO; +KETO10TAB PO; +METR-265 PO; +OXYC1TAB23 PO; +ZOFR4TAB16 PO
[2022-08-22 11:35] LABS: BASO # 0.2 10^3/uL (0.0-0.2); BASO % 1.3 % (0.0-1.0); EOS # 0.3 10^3/uL (0.0-0.5); EOS % 2.2 % (0.0-3.0); HEMATOCRIT 47.3 % (42.0-52.0); HEMOGLOBIN 15.1 g/dl (13.5-17.5); LYMPH # 3.2 10^3/uL (1.5-5.0); LYMPH % 26.2 % (24.0-44.0); MEAN CORPUSCULAR HEMOGLOBIN 30.9 pg (27.0-33.0); MEAN CORPUSCULAR HGB CONC 31.9 g/dl (32.0-36.5); MEAN CORPUSCULAR VOLUME 96.7 fl (80.0-96.0); MONO # 0.8 10^3/uL (0.0-0.8); MONO % 6.2 % (2.0-8.0); NEUTROPHILS # 7.6 10^3/uL (1.5-8.5); NEUTROPHILS % 62.2 % (36.0-66.0); PLATELET COUNT, AUTOMATED 291 10^3/uL (150-450); RED BLOOD COUNT 4.89 10^6/uL (4.30-6.10); WHITE BLOOD COUNT 12.2 10^3/uL (4.0-10.0)
[2022-08-22 12:19] LABS: ALBUMIN 3.6 GM/DL (3.2-5.2); ALT/SGPT 23 U/L (12-78); BILIRUBIN,TOTAL 0.4 MG/DL (0.2-1.0); BLOOD UREA NITROGEN 12 MG/DL (7-18); CALCIUM LEVEL 9.4 MG/DL (8.5-10.1); CARBON DIOXIDE LEVEL 31 MEQ/L (21-32); CHLORIDE LEVEL 107 MEQ/L (98-107); CHOLESTEROL LEVEL 234 MG/DL (<200); CHOLESTEROL RISK RATIO 8.068 (<5); CREATININE FOR GFR 0.97 MG/DL (0.70-1.30); GLOMERULAR FILTRATION RATE > 60.0 (>56); GLUCOSE, FASTING 129 MG/DL (70-100); HDL CHOLESTEROL 29 MG/DL (>40); LDL CHOLESTEROL 144 MG/DL (<100); NON-HDL-C 205 MG/DL; POTASSIUM SERUM 5.2 MEQ/L (3.5-5.1); SODIUM LEVEL 141 MEQ/L (136-145); TOTAL PROTEIN 7.1 GM/DL (6.4-8.2); TRIGLYCERIDES LEVEL 306 MG/DL (<150)
[2022-08-22 12:59] LABS: TOTAL 25(OH) VITAMIN D 27.3 NG/ML (30.0-100.0)
== END ==
LOC: M PLALAB 08:40
PROVIDERS: ATTEND Nurse Practitioner Family
DX: L03.317 Cellulitis of buttock (principal); R73.09 Other abnormal glucose; Z13.220 Encounter for screening for lipoid disorders; E55.9 Vitamin D deficiency, unspecified; Z79.899 Other long term (current) drug therapy

== ENCOUNTER 2022-10-25 13:29 | Emergency (ER) | payer OTHER ==
[~2022-10-25] VITALS: Ht 175.3 cm; Wt 110.0 kg
[2022-10-25 13:32] VITALS: BP 144/86
== END 2022-10-25 18:42 | disposition left against medical advice (07) ==
LOC: M ED 13:29
DX: Z53.21 Procedure and treatment not carried out due to patient leaving prior to being seen by health care provider (principal)

== ENCOUNTER → 2023-02-19 | Outpatient (CLI) | payer OTHER ==
[2023-02-19 14:33] LABS: BASO # 0.1 10^3/uL (0.0-0.2); BASO % 1.3 % (0.0-1.0); EOS # 0.3 10^3/uL (0.0-0.5); EOS % 2.8 % (0.0-3.0); HEMATOCRIT 45.8 % (42.0-52.0); HEMOGLOBIN 15.3 g/dl (13.5-17.5); LYMPH % 39.9 % (24.0-44.0); MEAN CORPUSCULAR HEMOGLOBIN 31.3 pg (27.0-33.0); MEAN CORPUSCULAR HGB CONC 33.4 g/dl (32.0-36.5); MEAN CORPUSCULAR VOLUME 93.7 fl (80.0-96.0); MONO # 0.9 10^3/uL (0.0-0.8); MONO % 8.5 % (2.0-8.0); NEUTROPHILS # 4.6 10^3/uL (1.5-8.5); NEUTROPHILS % 46.5 % (36.0-66.0); PLATELET COUNT, AUTOMATED 211 10^3/uL (150-450); RED BLOOD COUNT 4.89 10^6/uL (4.30-6.10)
[2023-02-19 14:38] LABS: CHOLESTEROL RISK RATIO 7.07 (<5); HDL CHOLESTEROL 28.7 MG/DL (>40); LDL CHOLESTEROL 117.7 MG/DL (<100); NON-HDL-C 174.3 MG/DL
[2023-02-19 14:40] LABS: THYROID STIMULATING HORMONE 0.76 uIU/ML (0.55-4.78)
[2023-02-19 14:41] LABS: FREE T4 0.93 NG/DL (0.89-1.76)
[2023-02-19 14:54] LABS: CREATININE, URINE 127.7 MG/DL
[2023-02-19 14:55] LABS: MAU/CREAT RATIO 9.3 MCG/MG (0.0-30.0)
[2023-02-19 15:40] LABS: HEMOGLOBIN A1c 7.6 % (4.0-6.0)
== END ==
LOC: M PLALAB 11:04
PROVIDERS: ATTEND Nurse Practitioner Family
DX: E55.9 Vitamin D deficiency, unspecified (principal); E11.9 Type 2 diabetes mellitus without complications; E78.5 Hyperlipidemia, unspecified; Z12.5 Encounter for screening for malignant neoplasm of prostate
CPT/HCPCS: 36415; 80061; 82043; 82306; 83036; 84439; 84443; 85025; G0103

== ENCOUNTER → 2023-06-06 | Outpatient (CLI) | payer OTHER ==
[2023-06-06 14:45] LABS: BASO # 0.1 10^3/uL (0.0-0.2); EOS # 0.3 10^3/uL (0.0-0.5); EOS % 2.6 % (0.0-3.0); HEMATOCRIT 48.5 % (42.0-52.0); HEMOGLOBIN 15.1 g/dl (13.5-17.5); LYMPH # 3.4 10^3/uL (1.5-5.0); LYMPH % 33.3 % (24.0-44.0); MEAN CORPUSCULAR HEMOGLOBIN 29.6 pg (27.0-33.0); MEAN CORPUSCULAR HGB CONC 31.1 g/dl (32.0-36.5); MEAN CORPUSCULAR VOLUME 95.1 fl (80.0-96.0); MONO # 0.9 10^3/uL (0.0-0.8); MONO % 8.7 % (2.0-8.0); NEUTROPHILS # 5.4 10^3/uL (1.5-8.5); NEUTROPHILS % 53.6 % (36.0-66.0); PLATELET COUNT, AUTOMATED 210 10^3/uL (150-450); WHITE BLOOD COUNT 10.1 10^3/uL (4.0-10.0)
[2023-06-06 15:31] LABS: HEMOGLOBIN A1c 6.4 % (4.0-6.0)
[2023-06-06 15:36] LABS: TOTAL 25(OH) VITAMIN D 38.6 NG/ML (20.0-100.0)
[2023-06-06 15:39] LABS: ALKALINE PHOSPHATASE 124 U/L (46-116); ALT/SGPT 15 U/L (7.0-40); AST/SGOT 8 U/L (<34); BILIRUBIN,TOTAL 0.6 MG/DL (0.3-1.2); BLOOD UREA NITROGEN 13 MG/DL (9-23); CALCIUM LEVEL 9.5 MG/DL (8.5-10.1); CARBON DIOXIDE LEVEL 30 MMOL/L (20-31); CHLORIDE LEVEL 105 MMOL/L (98-107); CHOLESTEROL LEVEL 175 MG/DL (<200); CHOLESTEROL RISK RATIO 5.43 (<5); CREATININE FOR GFR 0.85 MG/DL (0.70-1.30); CREATININE, URINE 55.7 MG/DL; GLOMERULAR FILTRATION RATE > 60.0 (>56); GLUCOSE, FASTING 98 MG/DL (60-100); HDL CHOLESTEROL 32.2 MG/DL (>40); LDL CHOLESTEROL 113.4 MG/DL (<100); MALB URINE SIEMENS < 3.0 MG/L; MAU/CREAT RATIO 5.3 MCG/MG (0.0-30.0); NON-HDL-C 142.8 MG/DL; POTASSIUM SERUM 4.9 MMOL/L (3.5-5.1); SODIUM LEVEL 142 MMOL/L (136-145); TOTAL PROTEIN 6.7 G/DL (5.7-8.2); TRIGLYCERIDES LEVEL 147 MG/DL (<150)
== END ==
LOC: M PLALAB 09:07
PROVIDERS: ATTEND Nurse Practitioner Family
DX: E11.9 Type 2 diabetes mellitus without complications (principal); E55.9 Vitamin D deficiency, unspecified; E78.5 Hyperlipidemia, unspecified; Z79.899 Other long term (current) drug therapy

== ENCOUNTER → 2023-10-23 | Outpatient (CLI) | payer OTHER ==
[2023-10-23 14:15] LABS: BASO # 0.1 10^3/uL (0.0-0.2); BASO % 0.8 % (0.0-1.0); EOS # 0.3 10^3/uL (0.0-0.5); HEMATOCRIT 46.8 % (42.0-52.0); LYMPH % 32.6 % (24.0-44.0); MEAN CORPUSCULAR HEMOGLOBIN 30.7 pg (27.0-33.0); MEAN CORPUSCULAR HGB CONC 32.1 g/dl (32.0-36.5); MEAN CORPUSCULAR VOLUME 95.7 fl (80.0-96.0); MONO % 8.2 % (2.0-8.0); NEUTROPHILS # 6.8 10^3/uL (1.5-8.5); NEUTROPHILS % 55.7 % (36.0-66.0); PLATELET COUNT, AUTOMATED 204 10^3/uL (150-450); RED BLOOD COUNT 4.89 10^6/uL (4.30-6.10); WHITE BLOOD COUNT 12.2 10^3/uL (4.0-10.0)
[2023-10-23 14:32] LABS: HEMOGLOBIN A1c 6.2 % (4.0-6.0)
[2023-10-23 14:42] LABS: CREATININE, URINE 93.1 MG/DL
[2023-10-23 14:45] LABS: MAU/CREAT RATIO 3.2 MCG/MG (0.0-30.0)
[2023-10-23 14:46] LABS: ALBUMIN 3.9 G/DL (3.2-5.2); ALKALINE PHOSPHATASE 119 U/L (46-116); ALT/SGPT 20 U/L (7.0-40); AST/SGOT 10 U/L (<34); BILIRUBIN,TOTAL 0.6 MG/DL (0.3-1.2); BLOOD UREA NITROGEN 12 MG/DL (9-23); CALCIUM LEVEL 9.7 MG/DL (8.5-10.1); CARBON DIOXIDE LEVEL 28 MMOL/L (20-31); CHLORIDE LEVEL 109 MMOL/L (98-107); CHOLESTEROL LEVEL 154 MG/DL (<200); CHOLESTEROL RISK RATIO 4.45 (<5); CREATININE FOR GFR 0.86 MG/DL (0.70-1.30); GLOMERULAR FILTRATION RATE > 60.0 (>56); GLUCOSE, FASTING 84 MG/DL (60-100); HDL CHOLESTEROL 34.6 MG/DL (>40); LDL CHOLESTEROL 89.8 MG/DL (<100); NON-HDL-C 119.4 MG/DL; POTASSIUM SERUM 4.5 MMOL/L (3.5-5.1); SODIUM LEVEL 143 MMOL/L (136-145); TOTAL PROTEIN 6.6 G/DL (5.7-8.2); TRIGLYCERIDES LEVEL 148 MG/DL (<150)
[2023-10-23 14:47] LABS: THYROID STIMULATING HORMONE 1.023 uIU/ML (0.55-4.78)
[2023-10-23 14:48] LABS: FREE T4 0.93 NG/DL (0.89-1.76)
== END ==
LOC: M PLALAB 11:31
PROVIDERS: ATTEND Nurse Practitioner Family
DX: E55.9 Vitamin D deficiency, unspecified (principal); E11.9 Type 2 diabetes mellitus without complications; E78.5 Hyperlipidemia, unspecified

== ENCOUNTER → 2024-04-22 | Outpatient (CLI) | payer OTHER ==
[2024-04-22 13:39] LABS: BASO # 0.1 10^3/uL (0.0-0.2); BASO % 0.8 % (0.0-1.0); EOS # 0.2 10^3/uL (0.0-0.5); EOS % 1.9 % (0.0-3.0); HEMATOCRIT 45.3 % (42.0-52.0); HEMOGLOBIN 14.9 g/dl (13.5-17.5); LYMPH # 3.8 10^3/uL (1.5-5.0); LYMPH % 31.3 % (24.0-44.0); MEAN CORPUSCULAR HEMOGLOBIN 30.8 pg (27.0-33.0); MEAN CORPUSCULAR HGB CONC 32.9 g/dl (32.0-36.5); MEAN CORPUSCULAR VOLUME 93.6 fl (80.0-96.0); MONO # 1.1 10^3/uL (0.0-0.8); MONO % 9.4 % (2.0-8.0); NEUTROPHILS # 6.7 10^3/uL (1.5-8.5); NEUTROPHILS % 55.7 % (36.0-66.0); PLATELET COUNT, AUTOMATED 216 10^3/uL (150-450); RED BLOOD COUNT 4.84 10^6/uL (4.30-6.10)
[2024-04-22 14:07] LABS: ALKALINE PHOSPHATASE 122 U/L (46-116); ALT/SGPT 19 U/L (7.0-40); AST/SGOT < 8 U/L (<34); BILIRUBIN,TOTAL 0.6 MG/DL (0.3-1.2); BLOOD UREA NITROGEN 15 MG/DL (9-23); CALCIUM LEVEL 9.3 MG/DL (8.5-10.1); CARBON DIOXIDE LEVEL 32 MMOL/L (20-31); CHLORIDE LEVEL 105 MMOL/L (98-107); CHOLESTEROL LEVEL 151 MG/DL (<200); CHOLESTEROL RISK RATIO 4.46 (<5); CREATININE FOR GFR 0.88 MG/DL (0.70-1.30); GLOMERULAR FILTRATION RATE > 60.0 (>56); GLUCOSE, FASTING 96 MG/DL (60-100); HDL CHOLESTEROL 33.8 MG/DL (>40); LDL CHOLESTEROL 87.2 MG/DL (<100); NON-HDL-C 117.2 MG/DL; POTASSIUM SERUM 4.4 MMOL/L (3.5-5.1); SODIUM LEVEL 139 MMOL/L (136-145); TOTAL PROTEIN 6.7 G/DL (5.7-8.2); TRIGLYCERIDES LEVEL 150 MG/DL (<150)
[2024-04-22 14:08] LABS: CREATININE, URINE 113.8 MG/DL
[2024-04-22 14:09] LABS: MAU/CREAT RATIO 4.3 MCG/MG (0.0-30.0); TOTAL 25(OH) VITAMIN D 27.1 NG/ML (20.0-100.0)
== END ==
LOC: M PLALAB 10:59
PROVIDERS: ATTEND Nurse Practitioner Family
DX: E55.9 Vitamin D deficiency, unspecified (principal); E11.9 Type 2 diabetes mellitus without complications; D72.829 Elevated white blood cell count, unspecified; E78.5 Hyperlipidemia, unspecified

== ENCOUNTER 2024-05-06 12:57 | Emergency (ER) | payer OTHER ==
[~2024-05-06] VITALS: Ht 175.3 cm; Wt 98.0 kg
[2024-05-06 13:12] VITALS: BP 145/83; TEMP 98.1; O2SAT 96
[2024-05-06] MEDS ORDERED: ATOR1TAB21 (13:19)
[2024-05-06] MEDS ORDERED: METF-838 (13:19)
[2024-05-06] MEDS ORDERED: LISI2.5T9 (13:19)
[2024-05-06] MEDS: LIDOCAINE 1% MDV 20ML VIAL SC ONE (17:00)
[2024-05-06] MEDS: BOOSTRIX VACCINE (TETANUS/DIPHTH/ACEL. PERTUSSIS) 0.5ML SYR IM ONE (17:49)
== END 2024-05-06 17:58 | disposition home or self-care (01) ==
LOC: EDBD 12:57 → M ED 12:57
DX: S61.511A Laceration without foreign body of right wrist, initial encounter (principal); I10 Essential (primary) hypertension; E11.9 Type 2 diabetes mellitus without complications; N18.9 Chronic kidney disease, unspecified; K21.9 Gastro-esophageal reflux disease without esophagitis; F17.200 Nicotine dependence, unspecified, uncomplicated; Y92.89 Other specified places as the place of occurrence of the external cause; Y93.89 Activity, other specified; Y99.9 Unspecified external cause status; Z91.048 Other nonmedicinal substance allergy status; Z23 Encounter for immunization; Z79.02 Long term (current) use of antithrombotics/antiplatelets; Z79.811 Long term (current) use of aromatase inhibitors; Z79.4 Long term (current) use of insulin

== ENCOUNTER 2024-05-17 09:47 | Emergency (ER) | payer OTHER ==
[~2024-05-17] VITALS: Ht 175.3 cm; Wt 99.9 kg
[2024-05-17 09:47] VITALS: BP 174/89; TEMP 98.1; O2SAT 99
[~2024-05-17 09:47] MED LIST changes: +ATOR1TAB21; +LISI2.5T9; +METF-838
[2024-05-17] MEDS: DERMABOND TOPICAL SKIN ADHESIVE TOP ONE (11:30)
== END 2024-05-17 11:45 | disposition home or self-care (01) ==
LOC: M ED 09:47
DX: Z48.02 Encounter for removal of sutures (principal); E11.9 Type 2 diabetes mellitus without complications; F17.200 Nicotine dependence, unspecified, uncomplicated; Z91.048 Other nonmedicinal substance allergy status; Z79.02 Long term (current) use of antithrombotics/antiplatelets; Z79.811 Long term (current) use of aromatase inhibitors; Z79.4 Long term (current) use of insulin

== ENCOUNTER → 2024-10-21 | Outpatient (CLI) | payer OTHER ==
[2024-10-21 13:51] LABS: BASO # 0.1 10^3/uL (0.0-0.2); BASO % 0.8 % (0.0-1.0); EOS # 0.3 10^3/uL (0.0-0.5); EOS % 2.5 % (0.0-3.0); HEMATOCRIT 46.7 % (42.0-52.0); LYMPH # 3.4 10^3/uL (1.5-5.0); LYMPH % 28.8 % (24.0-44.0); MEAN CORPUSCULAR HEMOGLOBIN 31.1 pg (27.0-33.0); MEAN CORPUSCULAR HGB CONC 32.1 g/dl (32.0-36.5); MEAN CORPUSCULAR VOLUME 96.7 fl (80.0-96.0); MONO % 8.9 % (2.0-8.0); NEUTROPHILS # 6.8 10^3/uL (1.5-8.5); NEUTROPHILS % 58.2 % (36.0-66.0); PLATELET COUNT, AUTOMATED 208 10^3/uL (150-450); RED BLOOD COUNT 4.83 10^6/uL (4.30-6.10); WHITE BLOOD COUNT 11.7 10^3/uL (4.0-10.0)
[2024-10-21 14:08] LABS: ALBUMIN 3.8 G/DL (3.2-5.2); ALKALINE PHOSPHATASE 127 U/L (40-129); ALT/SGPT 17 U/L (7.0-40); AST/SGOT 9 U/L (<34); BILIRUBIN,TOTAL 0.3 MG/DL (0.3-1.2); BLOOD UREA NITROGEN 14 MG/DL (9-23); CARBON DIOXIDE LEVEL 31 MMOL/L (20-31); CHLORIDE LEVEL 107 MMOL/L (98-107); CHOLESTEROL LEVEL 194 MG/DL (<200); CHOLESTEROL RISK RATIO 5.13 (<5); CREATININE FOR GFR 0.81 MG/DL (0.70-1.30); GLOMERULAR FILTRATION RATE > 60.0 (>56); GLUCOSE, FASTING 133 MG/DL (60-100); HDL CHOLESTEROL 37.8 MG/DL (>40); LDL CHOLESTEROL 120.2 MG/DL (<100); NON-HDL-C 156.2 MG/DL; POTASSIUM SERUM 4.5 MMOL/L (3.5-5.1); SODIUM LEVEL 144 MMOL/L (136-145); TOTAL PROTEIN 6.9 G/DL (5.7-8.2); TRIGLYCERIDES LEVEL 180 MG/DL (<150)
[2024-10-21 14:12] LABS: HEMOGLOBIN A1c 6.5 % (4.0-6.0)
[2024-10-21 14:33] LABS: CREATININE, URINE 87.6 MG/DL
[2024-10-21 14:34] LABS: MALB URINE SIEMENS < 3.0 MG/L
== END ==
LOC: M PLALAB 11:12
PROVIDERS: ATTEND Nurse Practitioner Family
DX: E55.9 Vitamin D deficiency, unspecified (principal); E11.9 Type 2 diabetes mellitus without complications; E78.5 Hyperlipidemia, unspecified

== ENCOUNTER → 2025-10-15 | Outpatient (CLI) | payer MEDICARE, OTHER ==
[~2025-10-15] MED LIST changes: -BACTDSTA PO; +LIDO1ADH93 TOP; -LIDO5DIS41 TOP; +SULF-8 PO
[2025-10-15 11:15] LABS: BASO # 0.1 10^3/uL (0.0-0.2); BASO % 0.7 % (0.0-1.0); EOS # 0.1 10^3/uL (0.0-0.5); EOS % 1.2 % (0.0-3.0); LYMPH # 2.3 10^3/uL (1.5-5.0); LYMPH % 19.4 % (24.0-44.0); MONO # 0.9 10^3/uL (0.0-0.8); MONO % 7.2 % (2.0-8.0); NEUTROPHILS # 8.5 10^3/uL (1.5-8.5); NEUTROPHILS % 71.1 % (36.0-66.0); PLATELET COUNT, AUTOMATED 202 10^3/uL (150-450)
[2025-10-15 11:34] LABS: PSA SCREENING 0.85 NG/ML (< 4.00)
[2025-10-15 11:38] LABS: ALT/SGPT 12 U/L (7.0-40); AST/SGOT 10 U/L (<34); CALCIUM LEVEL 9.4 MG/DL (8.5-10.1); CARBON DIOXIDE LEVEL 30 MMOL/L (20-31); CHLORIDE LEVEL 105 MMOL/L (98-107); CHOLESTEROL LEVEL 189 MG/DL (<200); CHOLESTEROL RISK RATIO 4.73 (<5); CREATININE FOR GFR 0.78 MG/DL (0.70-1.30); GLOMERULAR FILTRATION RATE > 90.0 (>56); LDL CHOLESTEROL 125.5 MG/DL (<100); MAGNESIUM LEVEL 2.0 MG/DL (1.8-2.4); NON-HDL-C 149.1 MG/DL; POTASSIUM SERUM 4.3 MMOL/L (3.5-5.1); SODIUM LEVEL 140 MMOL/L (136-145); TRIGLYCERIDES LEVEL 118 MG/DL (<150)
[2025-10-15 11:50] LABS: CREATININE, URINE 146.6 MG/DL
[2025-10-15 11:51] LABS: MALB URINE SIEMENS 6.0 MG/L; MAU/CREAT RATIO 4.0 MCG/MG (0.0-30.0)
[2025-10-15 12:08] LABS: ESTIMATED AVERAGE GLUCOSE 128.0 MG/DL (60-110)
[2025-10-17 08:18] LABS: PROTEIN, TOTAL SO 6.9 g/dL (6.1-8.1)
[2025-10-20 07:17] LABS: ALBUMIN SO 4.2 g/dL (3.8-4.8); ALPHA 1 GLOBULINS SO 0.3 g/dL (0.2-0.3); ALPHA 2 GLOBULINS SO 0.8 g/dL (0.5-0.9); BETA 2 GLOBULIN SO 0.4 g/dL (0.2-0.5); BETA GLOBULIN SO 0.5 g/dL (0.4-0.6); GAMMA GLOBULINS SO 0.8 g/dL (0.8-1.7)
== END ==
LOC: M PLALAB 08:30
PROVIDERS: ATTEND Nurse Practitioner Family
DX: E78.5 Hyperlipidemia, unspecified (principal); D72.829 Elevated white blood cell count, unspecified; I10 Essential (primary) hypertension; Z12.5 Encounter for screening for malignant neoplasm of prostate; E11.9 Type 2 diabetes mellitus without complications; E55.9 Vitamin D deficiency, unspecified